=== PATIENT | male | born 2000 | race African-American/Black ===

== ENCOUNTER 2023-07-13 10:05 | Emergency (ER) | payer MEDICAID ==
[~2023-07-13] VITALS: Ht 177.8 cm; Wt 90.0 kg
[~2023-07-13 10:05] MED LIST: CLON0.1T; DEXT10TA4; LISD50CA; RESPIRADONE
[2023-07-13 10:08] VITALS: BP 151/96; PULSE 73; RESP 18; TEMP 98.2; O2SAT 100
[2023-07-13] MEDS ORDERED: ACETAMINOPHEN 325MG TABLET PO STA (10:20)
[2023-07-13] MEDS ORDERED: METOCLOPRAMIDE HCL 10MG/2ML VIAL IV ONE (10:30)
[2023-07-13] MEDS ORDERED: SODIUM CHLORIDE 0.9% 1,000 ML IV ONE (10:30)
== END 2023-07-13 13:54 | disposition left against medical advice (07) ==
LOC: ER 10:18
DX: G43.909 Migraine, unspecified, not intractable, without status migrainosus (principal); F15.90 Other stimulant use, unspecified, uncomplicated
CPT/HCPCS: 99283; J7030

== ENCOUNTER 2025-03-26 08:13 | Emergency (ER) | payer MEDICAID ==
[~2025-03-26] VITALS: Ht 182.9 cm; Wt 110.0 kg
[2025-03-26 08:22] VITALS: BP 165/113; TEMP 36.6; O2SAT 99
[2025-03-26 08:30] VITALS: PULSE 98; RESP 20; O2SAT 99
[2025-03-26] MEDS ORDERED: PSYL575P22 MT (08:47)
[2025-03-26] MEDS ORDERED: HYDR453.3 TP (08:47)
[2025-03-27] MEDS ORDERED: SENN-362 MT (09:49)
== END 2025-03-26 08:59 | disposition home or self-care (01) ==
LOC: ER 08:13
DX: K64.4 Residual hemorrhoidal skin tags (principal); I10 Essential (primary) hypertension; F19.90 Other psychoactive substance use, unspecified, uncomplicated; Z87.19 Personal history of other diseases of the digestive system; Z79.899 Other long term (current) drug therapy
CPT/HCPCS: 99283

== ENCOUNTER 2025-03-27 08:21 | Emergency (ER) | payer MEDICAID ==
[~2025-03-27] VITALS: Ht 182.9 cm; Wt 111.0 kg
[~2025-03-27 08:21] MED LIST changes: +HYDR453.3 TP; +PSYL575P22 MT
[2025-03-27 08:27] VITALS: O2SAT 99
[2025-03-27 08:45] VITALS: TEMP 36.9; O2SAT 99
[2025-03-27] MEDS ORDERED: SENN-362 MT (09:49)
[2025-03-27 10:11] VITALS: BP 177/119; PULSE 88; RESP 18
[2025-03-27] MEDS: KETOROLAC 15MG/ML VIAL IM ONE (10:11)
== END 2025-03-27 10:15 | disposition home or self-care (01) ==
LOC: ER 08:21
DX: K64.9 Unspecified hemorrhoids (principal); I10 Essential (primary) hypertension; Z98.890 Other specified postprocedural states; Z79.899 Other long term (current) drug therapy; Z87.19 Personal history of other diseases of the digestive system
CPT/HCPCS: 99283; 96372; J1885

== ENCOUNTER 2025-05-07 | Emergency (ER) | payer MEDICAID ==
[~2025-05-07] VITALS: Ht 180.3 cm; Wt 94.0 kg
[~2025-05-07] MED LIST changes: +SENN-362 MT
[2025-05-07 00:21] VITALS: O2SAT 98
[2025-05-07 01:01] LABS: CLARITY URINE CLEAR (CLEAR); COLOR URINE YELLOW (YELLOW); GLUCOSE URINE NEGATIVE (NEGATIVE); KETONES URINE TRACE (NEGATIVE); LEUKOCYTE ESTERASE URINE NEGATIVE (NEGATIVE); NITRITE URINE NEGATIVE (NEGATIVE); OCCULT BLOOD URINE NEGATIVE (NEGATIVE); PH URINE 7.0 (4.5-8.0); PROTEIN URINE TRACE (NEGATIVE); SPECIFIC GRAVITY URINE 1.024 (1.005-1.030); UROBILINOGEN URINE 1.0 E.U./dL (0.2-1.0)
[2025-05-07 01:16] LABS: RBC URINE 0-2 /hpf (0-2); SQUAMOUS EPITHELIAL CELL URINE RARE /lpf (RARE/1+); WBC URINE 0-2 /hpf (0-2)
[2025-05-07 01:17] LABS: BACTERIA URINE RARE
[2025-05-07 02:13] VITALS: BP 156/110; PULSE 109; RESP 16; TEMP 36.6; O2SAT 98
[2025-05-07] MEDS ORDERED: DOXY100C5 MT (11:43)
== END 2025-05-07 04:39 | disposition left against medical advice (07) ==
LOC: ER
DX: Z00.8 Encounter for other general examination (principal)
CPT/HCPCS: 81003; 99281; 99283

== ENCOUNTER 2025-05-07 09:37 | Emergency (ER) | payer MEDICAID ==
[~2025-05-07] VITALS: Ht 182.9 cm; Wt 105.0 kg
[2025-05-07 09:45] VITALS: O2SAT 98
[2025-05-07] MEDS: LIDOCAINE HCL 1% 20ML VIAL INFIL ONE (10:03)
[2025-05-07] MEDS: DOXYCYCLINE HYCLATE 100MG CAPSULE PO ONE (10:03)
[2025-05-07] MEDS: CEFTRIAXONE SODIUM 500MG VIAL IM ONE (10:03)
[2025-05-07 10:04] LABS: CLARITY URINE CLEAR (CLEAR); COLOR URINE DARK YELLOW (YELLOW); GLUCOSE URINE NEGATIVE (NEGATIVE); KETONES URINE NEGATIVE (NEGATIVE); LEUKOCYTE ESTERASE URINE NEGATIVE (NEGATIVE); NITRITE URINE NEGATIVE (NEGATIVE); OCCULT BLOOD URINE NEGATIVE (NEGATIVE); PH URINE 5.5 (4.5-8.0); PROTEIN URINE TRACE (NEGATIVE); SPECIFIC GRAVITY URINE 1.026 (1.005-1.030); UROBILINOGEN URINE 1.0 E.U./dL (0.2-1.0)
[2025-05-07 10:19] LABS: MUCUS URINE 2+ /lpf (NONE/TRACE)
[2025-05-07 10:20] LABS: WBC URINE 0-2 /hpf (0-2)
[2025-05-07 10:21] LABS: BACTERIA URINE NONE SEEN; RBC URINE NONE SEEN /hpf (0-2)
[2025-05-07 10:22] LABS: SQUAMOUS EPITHELIAL CELL URINE RARE /lpf (RARE/1+)
[2025-05-07] MEDS: DICYCLOMINE HCL 10MG CAPSULE PO ONE (11:13)
[2025-05-07] MEDS ORDERED: DOXY100C5 MT (11:43)
[2025-05-07 11:50] VITALS: BP 160/99; PULSE 98; RESP 17; TEMP 37; O2SAT 99
[2025-05-09 09:09] LABS: CHLAMYDIA TRACHOMATIS NAA Negative (Negative); NEISSERIA GONORRHOEAE NAA Negative (Negative)
== END 2025-05-07 11:51 | disposition home or self-care (01) ==
LOC: ER 09:37
DX: R30.0 Dysuria (principal); I10 Essential (primary) hypertension; Z79.899 Other long term (current) drug therapy
CPT/HCPCS: 99283; 87491; 87591; 81003; 96372; J0696; J2003

== ENCOUNTER 2025-05-17 20:01 | Emergency (ER) | payer MEDICAID ==
[~2025-05-17] VITALS: Ht 180.3 cm; Wt 112.0 kg
[~2025-05-17 20:01] MED LIST changes: +DOXY100C5 MT
[2025-05-17 20:52] VITALS: O2SAT 99
[2025-05-17] MEDS: KETOROLAC 15MG/ML VIAL IM ONE (23:24)
[2025-05-17] MEDS: LIDOCAINE 5% PATCH TOP SCH (23:34)
[2025-05-17] MEDS ORDERED: LIDO-53 TP (23:54)
[2025-05-17] MEDS ORDERED: NAPR-1176 MT (23:54)
[2025-05-18 00:03] VITALS: BP 135/89; PULSE 92; RESP 16; TEMP 36.9; O2SAT 99
== END 2025-05-18 00:04 | disposition home or self-care (01) ==
LOC: ER 20:01
DX: M54.50 Low back pain, unspecified (principal); I10 Essential (primary) hypertension; Z79.1 Long term (current) use of non-steroidal anti-inflammatories (NSAID); Z79.899 Other long term (current) drug therapy
CPT/HCPCS: 96372; 99283; J1885; Z7610

== ENCOUNTER 2025-07-13 20:15 | Emergency (ER) | payer MEDICAID ==
[~2025-07-13] VITALS: Ht 180.3 cm; Wt 100.0 kg
[~2025-07-13 20:15] MED LIST changes: +LIDO-53 TP; +NAPR-1176 MT
[2025-07-13 20:18] VITALS: BP 142/106; TEMP 36.7; O2SAT 98
[2025-07-13 20:24] VITALS: PULSE 125; RESP 20; TEMP 98.06; O2SAT 98
[2025-07-13] MEDS: HYDROCODONE/ACETAMINOPHEN 5/325MG TABLET PO ONE (21:56)
[2025-07-13] MEDS: ONDANSETRON 4MG ODT PO ONE (21:56)
[2025-07-13] MEDS ORDERED: IBUP-2028 MT (23:02)
[2025-07-13] MEDS ORDERED: TOPUD PO (23:02)
== END 2025-07-13 23:18 | disposition home or self-care (01) ==
LOC: ER 20:15
DX: S00.03XA Contusion of scalp, initial encounter (principal); Z79.1 Long term (current) use of non-steroidal anti-inflammatories (NSAID); Y08.89XA Assault by other specified means, initial encounter; Y93.89 Activity, other specified; Y92.89 Other specified places as the place of occurrence of the external cause; Y99.8 Other external cause status
CPT/HCPCS: 73660; 70450; 99284; Q0162; Z7610